=== PATIENT | female | born 1990 | race African-American/Black ===

== ENCOUNTER 2023-01-13 05:16 | Observation (INO) | payer OTHER ==
[2023-01-13] MEDS ORDERED: KETOROLAC 15 MG/ML VIAL IVP STA (05:42)
[2023-01-13] MEDS ORDERED: ONDANSETRON 4 MG/2 ML VIAL IVP STA (05:42)
[2023-01-13] MEDS ORDERED: SODIUM CHLORIDE 0.9% 1,000 ML IV STA ×2 (05:42→07:15)
--- NOTE | 2023-01-13 05:45 | ED Physician Documentation ---
History of Present Illness - Stated complaint Stated Complaint: ABD PX - Chief complaint Chief Complaint: Abd Pain - History obtained from History obtained from: Patient, Family () - Additonal information Additional information: 32yF, previously healthy, p/w nbnb n/v X 2 days and epigastric abdominal pain radiating diffusely. +chills. +dysuria yesterday. + low back pain. denies diarrhea. no PSH PD PAST MEDICAL HISTORY - Past Medical History Past Medical History: No - Past Surgical History Past Surgical History: No - Present Medications Home Medications: Ambulatory Orders Medication Instructions Recorded Confirmed Ondansetron Odt [Zofran Odt] 4 mg TL Q6H PRN #10 tablet 01/13/23 - Allergies Allergies/Adverse Reactions: Allergies Allergy/AdvReac Type Severity Reaction Status Date / Time No Known Drug Allergies Allergy Verified 01/13/23 05:51 - Social History Does the pt smoke?: No Smoking Status: Never smoker Does the pt drink ETOH?: No Does the pt have substance abuse?: No - Immunizations Immunizations are current?: Yes - POLST Patient has POLST: No PD ED PE NORMAL - Vitals Vital signs reviewed: Yes - General General: Alert and oriented X 3, No acute distress, Well developed/nourished - HEENT HEENT: Atraumatic, PERRL, EOMI, Other (dry mm) - Neck Neck: Supple, no meningeal sign - Cardiac Cardiac: RRR - Respiratory Respiratory: No respiratory distress, Clear bilaterally - Abdomen Abdomen: Non tender, Non distended, Other (discomfort to suprapubic palpation) - Back Back: No CVA TTP - Derm Derm: Normal color, Warm and dry - Neuro Neuro: Alert and oriented X 3 - Psych Psych: Normal mood, Normal affect Results - Vitals Vitals: Vital Signs - 24 hr 01/13/23 05:20 Temperature 37.0 C Heart Rate 86 Respiratory 18 Rate Blood Pressure 115/73 O2 Saturation 99 Oxygen O2 Source Room air - Labs Labs: Laboratory Tests 01/13/23 01/13/23 05:40 06:03 WBC 14.9 H RBC 4.84 Hgb 14.2 Hct 42.2 MCV 87.2 MCH 29.3 MCHC 33.6 RDW 13.4 Plt Count 191 MPV 11.5 H Neut # (Auto) 10.6 H Lymph # (Auto) 3.0 [place] # (Auto) 1.1 H Eos # (Auto) 0.1 Baso # (Auto) 0.1 Absolute Nucleated RBC 0.00 Nucleated RBC % 0.0 Sodium 136 Potassium 3.7 Chloride 102 Carbon Dioxide 25 Anion Gap 9.0 BUN 13 Creatinine 0.6 Estimated GFR (MDRD) 117 Glucose 108 H Calcium 9.8 Total Bilirubin 0.4 AST 14 ALT 15 Alkaline Phosphatase 45 Total Protein 7.6 Albumin 4.3 Globulin 3.3 Albumin/Globulin Ratio 1.3 Lipase 33 PD Medical Decision Making - ED course ED course: 32-year-old woman presented to the ED with nausea and vomiting and dysuria yesterday. CBC, abdominal panel benign with the exception of some leukocytosis. Suspect urinary tract infection versus viral gastroenteritis. Patient signed out to incoming daytime EDMD at 7 AM shift change pending urinalysis. Zofran sent electronically to pharmacy. Departure - Departure Clinical Impression: Vomiting, Abdominal pain, Dysuria Condition: Stable Instructions: ED Nausea Vomiting Prescriptions: Ondansetron Odt [Zofran Odt] 4 mg TL Q6H PRN #10 tablet PRN Reason: Nausea / Vomiting Comments: You were seen in the emergency department for vomiting and abdominal pain. Prescription for zofran was sent electronically to [facility] in [place]. Please follow-up with your primary care provider and return to the emergency department if you have any new or worsening symptoms or other concerns. Forms: PCP List
[2023-01-13 05:49] LABS: BASOPHILS # (AUTO) 0.1 10^3/uL (0.0-0.1); BASOPHILS % (AUTO) 0.3 %; EOSINOPHILS # (AUTO) 0.1 10^3/uL (0.0-0.7); EOSINOPHILS % (AUTO) 0.9 %; HCT - HEMATOCRIT 42.2 % (37.0-47.0); HGB - HEMOGLOBIN 14.2 g/dL (12.0-16.0); LYMPHOCYTES % (AUTO) 20.2 %; MEAN CORPUSCULAR HEMOGLOBIN 29.3 pg (27.0-31.0); MEAN CORPUSCULAR HGB CONC 33.6 g/dL (32.0-36.0); MEAN CORPUSCULAR VOLUME 87.2 fL (81.0-99.0); MEAN PLATELET VOLUME 11.5 fL (7.9-10.8); MONOCYTES # (AUTO) 1.1 10^3/uL (0.0-1.0); MONOCYTES % (AUTO) 7.3 %; NEUTROPHILS # (AUTO) 10.6 10^3/uL (1.5-6.6); NEUTROPHILS % (AUTO) 70.9 %; PLT - PLATELET COUNT 191 10^3/uL (130-450); RED BLOOD COUNT 4.84 10^6/uL (4.20-5.40); RED CELL DISTRIBUTION WIDTH 13.4 % (12.0-15.0); WHITE BLOOD COUNT 14.9 x10^3/uL (4.8-10.8)
[2023-01-13 06:23] LABS: ALBUMIN 4.3 g/dL (3.2-5.5); ALBUMIN/GLOBULIN RATIO 1.3 (1.0-2.2); BILIRUBIN,TOTAL 0.4 mg/dL (0.2-1.0); CALCIUM 9.8 mg/dL (8.5-10.3); CREATININE 0.6 mg/dL (0.6-1.3); POTASSIUM 3.7 mmol/L (3.5-4.5); TOTAL PROTEIN 7.6 g/dL (6.4-8.9)
[2023-01-13 07:46] LABS: BILIRUBIN,URINE NEGATIVE (NEGATIVE); GLUCOSE, URINE (UA) NEGATIVE (NEGATIVE); KETONES,URINE (UA) NEGATIVE (NEGATIVE); LEUKOCYTE ESTERASE, URINE NEGATIVE (NEGATIVE); NITRITE,URINE NEGATIVE (NEGATIVE); OCCULT BLOOD,URINE NEGATIVE (NEGATIVE); PH,URINE 6.5 PH (5.0-7.5); PROTEIN,URINE 100 mg/dL (NEGATIVE); UROBILINOGEN,URINE 0.2 (NORMAL) E.U./dL (NORMAL)
[2023-01-13 07:48] LABS: CLARITY,URINE HAZY (CLEAR); HCG UR QUAL NEGATIVE
[2023-01-13 07:53] LABS: BACTERIA,URINE Rare /HPF (None Seen); MUCUS,URINE Few Strands; RBC,URINE None Seen /HPF (0-5); SQUAMOUS EPITHELIAL CELL,UR MOD Squamous (<= Few); WBC,URINE 0-3 /HPF (0-5)
[2023-01-13] MEDS ORDERED: MORPHINE 2 MG/ML CARPUJECT IVP STA (09:41)
[2023-01-13] MEDS ORDERED: DROPERIDOL 5 MG/2 ML VIAL IVP STA (09:41)
--- NOTE | 2023-01-13 10:41 | CT Report ---
PROCEDURE: ABDOMEN/PELVIS W INDICATIONS: RLQ and suprapubic abd pn/vom CONTRAST: 100ml Opti 320 TECHNIQUE: After the administration of intravenous contrast, 5 mm thick sections acquired from the diaphragms to the symphysis. 5 mm thick coronal and sagittal reformats were acquired. For radiation dose reducti on, the following was used: automated exposure control, adjustment of mA and/or kV according to jalen ent size. COMPARISON: None FINDINGS: Image quality: Excellent. Lung bases and heart: Unremarkable. Liver: No solid mass. Gallbladder and biliary tree: Spleen: No splenomegaly. Pancreas: No pancreatic ductal dilation. Adrenals: No adrenal nodule. Kidneys and ureters: No hydronephrosis. No renal cystic lesion which requires follow up. No solid mas s. Bowel and peritoneum: No bowel distension. There is a blind-ending tubular structure within the right hemipelvis, with a maximal short axis diameter of 15 mm with thickened christine. There is a small amoun t of free fluid in the pelvis. Lymph nodes: No central or retroperitoneal adenopathy. Vessels: No infrarenal aortic aneurysm. PELVIS Reproductive organs: Unremarkable. Bladder: No abnormal wall thickening, accounting for underdistension. Pelvic lymph nodes: No pelvic adenopathy by size criteria. Bones: No aggressive osseous abnormality. Other: No significant ventral or inguinal hernia. IMPRESSION: 1. Acute appendicitis. 2. Small amount of free fluid in the pelvis. Reviewed by: Marielos Hanna MD on 01/13/2023 10:40 AM PDT Approved by: Marielos Hanna MD on 01/13/2023 10:40 AM PDT Station ID: [id number]
[2023-01-13] MEDS ORDERED: IOVERSOL 320 100 ML VIAL IVP ONE (11:08)
[2023-01-13] MEDS ORDERED: cefTRIAXone 1 GM in SODIUM CHLORIDE 0.9% MINIBAG 100 ML IV STA (11:29)
[2023-01-13] MEDS ORDERED: metroNIDAZOLE 500 MG/100 ML 500 MG/100 ML BAG IV ONE (11:30)
[2023-01-13] MEDS ORDERED: SODIUM CHLORIDE FLUSH 0.9% 10 ML SYRINGE IVP PRN (11:55)
[2023-01-13] MEDS ORDERED: LACTATED RINGERS 1,000 ML IV SCH ×2 (12:00→13:00)
--- NOTE | 2023-01-13 12:01 | HISTORY & PHYSICAL EXAMINATION ---
Chief Complaint - Chief Complaint Chief Complaint: Abdominal pain History of Present Illness - Admitted From Admitted From:: ED - History Obtained From Records Reviewed: Yes History obtained from: Patient Exam Limitations: None - History of Present Illness HPI Comment/Other: Malini was well until yesterday afternoon when she developed brenda-umbilical pain that was constant, non-radiating, not improved with BM or emesis and persistent. The pain moved to her RLQ over the evening. She has had chills but no fever. She has been nauseated and vomited several times. She denies prior episodes of similar discomfort. History - Past Medical History Cardiovascular: reports: None Respiratory: reports: None Neuro: reports: None Endocrine/Autoimmune: reports: None GI: reports: None DIETETICS PROFESSOR: reports: None : reports: None HEENT: reports: None Psych: reports: None Musculoskeletal: reports: None Derm: reports: None MRSA Hx?: No - Family & Social History Living arrangement: At home Living Situation: With spouse/s.o. - Substance History Use: Uses substance without health or social issues: NONE - POLST Patient has POLST: No Meds/Allgy - Home Medications Home Medications: Ambulatory Orders Medication Instructions Recorded Confirmed Ondansetron Odt [Zofran Odt] 4 mg TL Q6H PRN #10 tablet 01/13/23 - Allergies Allergies/Adverse Reactions: Allergies Allergy/AdvReac Type Severity Reaction Status Date / Time No Known Drug Allergies Allergy Verified 01/13/23 05:51 Review of Systems - Constitutional Constitutional: reports: Chills, Malaise - Gastrointestinal Gastrointestinal: reports: Abdominal pain, Nausea, Vomiting Exam - Vital Signs Vital Signs: Vital Signs x48h Temp Pulse Resp BP Pulse Ox 01/13/23 11:41 99.0 F 110 H 18 113/74 99 01/13/23 10:52 105 H 18 113/65 99 01/13/23 09:00 98.1 F 94 18 128/85 H 100 01/13/23 07:41 70 18 115/71 99 01/13/23 05:20 98.6 F 86 18 115/73 99 - Physical Exam General Appearance: positive: No acute distress Eyes Bilateral: positive: Normal inspection, PERRL ENT: positive: ENT inspection nml, Pharynx nml, No signs of dehydration Neck: positive: Nml inspection, Thyroid nml, No JVD Respiratory: positive: Chest non-tender, No respiratory distress, Breath sounds nml Cardiovascular: positive: Regular rate & rhythm, No murmur Peripheral Pulses: positive: 2+ Abdomen: positive: No distention, Tenderness, Other (RLQ tenderness without peritoneal signs; few BS) Back: positive: Nml inspection Skin: positive: Color nml, No rash, Warm Extremities: positive: Non-tender Neurologic/Psychiatric: positive: Oriented x3 Conclusion/Plan - Lab Results Fish Bones: 01/13/23 05:40 01/13/23 06:03 - Other Other Results/Comments: Image: CT ABd/Pelvis - Dilated appendix without evidence of perforation (images reviewed by me) Assessment: 1) Acute appendicitis Plan: 1) Laparoscopic appendectomy, possible open appendectomy under GETA 2) Preop Ceftriaxone/Flagyl Consent: Malini has been counseled for the procedure, it's indications, risks, benefits and expected outcome as well as alternative therapies. We specifically discussed risks associated with anesthesia, bleeding, infection, injury to surrounding structures which may require additional surgery, and the possible need for conversion to an open procedure. We also discussed the possible need for a blood transfusion with its risks and benefits. Malini understands, agrees, and consents to the proposed operative strategy and requests that we proceed with the procedure as outlined in our discussion. Vadim Hopkins MD, [facility] General Surgery Service
--- NOTE | 2023-01-13 12:11 | ED Physician Documentation ---
ED Addendum - Addendum Addendum: 01/13/23 12:00 The patient was signed out to me at change of shift, pending urinalysis and reevaluation after symptomatic treatment for abdominal pain, nausea and vomiting. does ever anybody from the the patient had been found to have a white blood cell count of 14.9 but remainder of work-up was negative. The patient was reported by nursing staff to be asking for more nausea medicine and for something for pain. I did go back and reevaluate her and examined her abdomen and found that she was actually quite tender on the right side. As such, I did order her the symptomatic relief requested but also, ordered a CT scan of the abdomen and pelvis. This was found to be positive for appendicitis. I spoke with the surgeon Dr. Hopkins who did come and see the patient. I also explained the findings and plan to the patient prior to Dr. Hopkins's arrival and she and her partner expressed understanding. Final impression: Acute appendicitis Disposition: Admit to same-day surgery in serious condition.
--- NOTE | 2023-01-13 12:19 | ANESTHESIA ---
Pre-Anesthesia VS, & Labs - Diagnosis appendicitis - Procedure lap appy Vital Signs: Temp Pulse Resp BP Pulse Ox O2 Flow Rate 37.2 C 110 H 18 113/74 99 01/13/23 11:41 01/13/23 11:41 01/13/23 11:41 01/13/23 11:41 01/13/23 11:41 Height: 4 ft 9 in Weight (kg): 54.431 kg Body Mass Index: 25.9 BMI Classification: Overweight - NPO >8 hours - Is Patient ?: No - Lab Results Current Lab Results: Laboratory Tests 01/13/23 06:03: Sodium 136, Potassium 3.7, Chloride 102, Carbon Dioxide 25, Anion Gap 9.0, BUN 13, Creatinine 0.6, Estimated GFR (MDRD) 117, Glucose 108 H, Calcium 9.8, Total Bilirubin 0.4, AST 14, ALT 15, Alkaline Phosphatase 45, Total Protein 7.6, Albumin 4.3, Globulin 3.3, Albumin/Globulin Ratio 1.3, Lipase 33 01/13/23 05:40: WBC 14.9 H, RBC 4.84, Hgb 14.2, Hct 42.2, MCV 87.2, MCH 29.3, MCHC 33.6, RDW 13.4, Plt Count 191, MPV 11.5 H, Neut # (Auto) 10.6 H, Lymph # (Auto) 3.0, [place] # (Auto) 1.1 H, Eos # (Auto) 0.1, Baso # (Auto) 0.1, Absolute Nucleated RBC 0.00, Nucleated RBC % 0.0 Lab results reviewed: Yes Fish Bones: 01/13/23 05:40 01/13/23 06:03 Home Medications and Allergies Active Medications Heparin Sodium (Porcine) (Heparin 5,000 Unit/Ml Vial) 5,000 unit SUBQ TID LONNY Metronidazole (Flagyl 500 Mg/100 Ml) 500 mg in 100 mls @ 100 mls/hr IV ONCE ONE Stop: 01/13/23 12:29 Last Admin: 01/13/23 11:34 Dose: 100 mls/hr Lactated Ringer's (Lr) 1,000 mls @ 100 mls/hr IV .Q10H LONNY Sodium Chloride (Sodium Chloride Flush 0.9% 10 Ml Syringe) 10 ml IVP 0100,0900,1700 LONNY Sodium Chloride (Sodium Chloride Flush 0.9% 10 Ml Syringe) 10 ml IVP PRN PRN PRN Reason: NEEDED PER PROVIDER ORDERS Allergies/Adverse Reactions: Allergies Allergy/AdvReac Type Severity Reaction Status Date / Time No Known Drug Allergies Allergy Verified 01/13/23 05:51 Anes History & Medical History - Anesthetic History Anesthesia Complications: reports: No previous complications Family history of Anesthesia Complications: Denies Family history of Malignant Hyperthermia: Denies - Medical History Cardiovascular: reports: None Pulmonary: reports: None Gastrointestinal: reports: None Urinary: reports: None Neuro: reports: None Musculoskeletal: reports: None Endocrine/Autoimmune: reports: None Skin: reports: None Smoking Status: Never smoker Exam General: Alert, Oriented x3, Cooperative Dental: WNL Mouth Openin Fingerbreadth Neck Mobility: Normal Mallampati classification: II Thyromental Distance: 4-6 cm Respiratory: Lungs clear Cardiovascular: Regular rate Plan Anesthesia Type: General Consent for Procedure(s) Verified and Reviewed: Yes Code Status: Attempt Resuscitation ASA classification: 1-Healthy patient Is this case an emergency?: Yes
[2023-01-13] MEDS ORDERED: ePHEDrine 50 MG/ML VIAL IVP PRN (12:25)
[2023-01-13] MEDS ORDERED: ONDANSETRON 4 MG/2 ML VIAL IVP PRN ×2 (12:25→13:58)
[2023-01-13] MEDS ORDERED: NALOXONE 0.4 MG/ML VIAL IVP PRN (12:25)
[2023-01-13] MEDS ORDERED: HYDROmorphone 0.5 MG/0.5 ML SYRINGE IVP PRN (12:25)
[2023-01-13] MEDS ORDERED: ATROPINE ABBOJECT 1 MG/10 ML SYRINGE IVP PRN (12:25)
[2023-01-13] MEDS ORDERED: fentaNYL 100 MCG/2 ML VIAL IVP PRN (12:25)
[2023-01-13] MEDS ORDERED: fentaNYL 100 MCG/2 ML VIAL ONE (12:27)
[2023-01-13] MEDS ORDERED: LIDOCAINE 1%-EPI 1:100000 20 ML MDV ONE (13:00)
[2023-01-13] MEDS ORDERED: BUPIVACAINE 0.25% PF 30 ML VIAL ONE (13:00)
[2023-01-13] MEDS ORDERED: ACETAMINOPHEN 1,000 MG/100 ML 1,000 MG/100 ML BAG IV ONE (13:03)
[2023-01-13] MEDS ORDERED: LIDOCAINE 1%-EPI 1:100000 20 ML MDV SUBQ ONE ×2 (13:23)
[2023-01-13] MEDS ORDERED: BUPIVACAINE 0.25% PF 30 ML VIAL SUBQ ONE ×2 (13:24)
[2023-01-13] MEDS ORDERED: SUGAMMADEX 200 MG/2 ML VIAL IVP ONE (13:32)
[2023-01-13] MEDS ORDERED: LACTATED RINGERS 1,000 ML IV ONE ×2 (13:46→14:00)
--- NOTE | 2023-01-13 13:57 | OPERATIVE REPORT ---
Operative Report - Other Other Information/Narrative: PROCEDURE DATE: 01/13/23 PREOPERATIVE DIAGNOSIS: Malini is a 32 year old female who has clinical, CT, and laboratory findings consistent with acute appendicitis. Malini is being taken to the operating room for laparoscopic appendectomy, possible open appendectomy. POSTOPERATIVE DIAGNOSIS: Acute appendicitis NAME OF PROCEDURE: Laparoscopic appendectomy SURGEON: Kali Hopkins MD, FACS STOCK SHIPPER: Fourth Mate ANESTHESIA: General endotracheal. ESTIMATED BLOOD LOSS: 5 mL. DRAINS: None SPECIMEN: Appendix COMPLICATIONS None FINDINGS: Dilated, non-ruptured, elongated appendix. Normal adnexa, uterus, liver, spleen DESCRIPTION OF OPERATION: After consent for the procedure was obtained, the patient was brought to the operating room where in the supine position, general endotracheal anesthesia was administered. A surgical time-out was performed, indicating the patient and the procedure to be performed. The abdomen was prepped with chloroprep and draped in a sterile fashion. The subcutaneous tissue of each of the planned port sites was infiltrated with 1% Lidocaine with epinephrine in a 50/50 mix with 1/4 % Marcaine mixture. Pneumoperitoneum was achieved through a subumbilical incision using a Donn cannula and an open technique. Under direct vision, a 5 mm muscle splitting, non-cutting port was placed in the right lower quadrant and an 12 mm muscle splitting, non-cutting port was placed in the left lower quadrant. Inspection revealed the above noted findings. Placing the patient in Trendelenburg position slightly rolled to the left allowed mobilization of the appendix into view. The appendix was then gently grasped with a ratcheted grasper and retracted superiorly and anteriorly. The mesoappendix was transected with a harmonic scalpel and healthy tissue was located at the base of the appendix. The base of the appendix was stapled and transected flush with the cecum using an Endo-TRISHA stapling device using gastrointestinal karthikeyan. The appendix was then brought out through the left lower quadrant port site incision using an EndoCatch device. Reinspection of the right lower quadrant revealed no evidence of bleeding or leakage from the previous dissection site. The right lower quadrant was irrigated with warm sterile saline. The irrigant was aspirated. A search was made for sponges, packs, instruments, and needles. None were found. The sponge, pack, instrument, and needle counts were relayed to me as being correct. The left lower quadrant port site was closed with a 2-0 Vicryl under direct vision using an endo-close device. The pneumoperitoneum then was released. There was no evidence of bleeding from the laparoscopic port sleeve sites upon release of the pneumoperitoneum. The subumbilical incision was closed with 2-0 Vicryl for the linea alba. The skin of each of the port sites was closed with interrupted 4-0 Monocryl in a subcuticular fashion with Steri-Strips to reinforce the epidermis. Dressings were placed. The patient tolerated the procedure well and was brought to the re covery room with stable vital signs.
[2023-01-13] MEDS ORDERED: oxyCODONE 5 MG TABLET PO PRN (13:58)
[2023-01-13] MEDS ORDERED: LORazepam 2 MG/ML VIAL IVP PRN (13:58)
[2023-01-13] MEDS: HEPARIN 5,000 UNIT/ML VIAL SUBQ SCH ×2 (15:22→21:37)
--- NOTE | 2023-01-13 15:59 | ANESTHESIA POST OP EVALUATION ---
Anesthesia Post Eval - Post Anesthesia Eval Vitals: Last Vital Signs Temp 37.6 C 01/13/23 15:25 Pulse 88 01/13/23 15:25 Resp 16 01/13/23 15:25 BP 95/61 01/13/23 15:25 Pulse Ox 96 01/13/23 15:25 O2 Flow Rate CV Function Including HR & BP: Stable Pain Control: Satisfactory Nausea & Vomiting: Negative Mental Status: Baseline Respiratory Status: Airway Patent Hydration Status: Satisfactory Anesthesia Complications: None
[2023-01-13] MEDS: SODIUM CHLORIDE FLUSH 0.9% 10 ML SYRINGE IVP SCH ×2 (16:50→23:56)
[2023-01-13] MEDS: LACTATED RINGERS 1,000 ML IV SCH (16:50)
[2023-01-13] MEDS: ACETAMINOPHEN 325 MG TABLET PO SCH ×2 (17:07→21:37)
[2023-01-13] MEDS: KETOROLAC 15 MG/ML VIAL IVP SCH (17:34)
[2023-01-14] MEDS: ACETAMINOPHEN 325 MG TABLET PO SCH ×4 (01:18→12:57)
[2023-01-14] MEDS: HEPARIN 5,000 UNIT/ML VIAL SUBQ SCH ×2 (05:27→14:44)
[2023-01-14] MEDS: KETOROLAC 15 MG/ML VIAL IVP SCH ×3 (05:31→12:57)
[2023-01-14 05:32] LABS: BASOPHILS % (AUTO) 0.1 %; HCT - HEMATOCRIT 35.5 % (37.0-47.0); HGB - HEMOGLOBIN 11.9 g/dL (12.0-16.0); LYMPHOCYTES # (AUTO) 2.2 10^3/uL (1.5-3.5); MEAN CORPUSCULAR HEMOGLOBIN 29.7 pg (27.0-31.0); MEAN CORPUSCULAR HGB CONC 33.5 g/dL (32.0-36.0); MEAN CORPUSCULAR VOLUME 88.5 fL (81.0-99.0); MEAN PLATELET VOLUME 11.6 fL (7.9-10.8); MONOCYTES # (AUTO) 1.1 10^3/uL (0.0-1.0); MONOCYTES % (AUTO) 6.5 %; NEUTROPHILS # (AUTO) 13.5 10^3/uL (1.5-6.6); PLT - PLATELET COUNT 185 10^3/uL (130-450); RED BLOOD COUNT 4.01 10^6/uL (4.20-5.40); WHITE BLOOD COUNT 16.8 x10^3/uL (4.8-10.8)
[2023-01-14 05:45] LABS: CALCIUM 8.5 mg/dL (8.5-10.3); CREATININE 0.5 mg/dL (0.6-1.3); POTASSIUM 3.5 mmol/L (3.5-4.5)
[2023-01-14] MEDS: LACTATED RINGERS 1,000 ML IV SCH (05:53)
--- NOTE | 2023-01-14 07:59 | PROVIDER PROGRESS NOTE ---
Subjective - General Admit Date: 01/13/23 Procedure Date: 01/13/23 Post Op Days: 1 Procedure Performed: Laparoscopic appendectomy - Review of Systems Wound/Incisions: positive: Other (Port site discomfort under good control) Drain Type: N/A HEENT: positive: No symptoms Pulmonary: positive: No symptoms Cardiovascular: positive: No symptoms Gastrointestinal: positive: Other (Tolerating a general diet) Genitourinary: positive: No symptoms, Other (Passing urine) Musculoskeletal: positive: No symptoms, Other (Ambulatory) Objective - Patient Data Vital Signs: Vital Signs x48h Temp Pulse Resp BP BP Pulse Ox 01/14/23 06:51 97.9 F 65 16 88/53 L 97 01/14/23 00:10 68 84/55 L 01/14/23 00:09 68 84/56 L 01/14/23 00:00 97.7 F 68 20 90/50 L 94/54 L 98 Weight: Weight 01/12/23 01/13/23 01/14/23 23:59 23:59 23:59 Weight (kg) 54 kg Intake & Output: Intake and Output Totals x24h 01/12/23 01/13/23 01/14/23 23:59 23:59 23:59 Intake Total 2681.667 750.833 Balance 2681.667 750.833 - Lab Results Lab Results: 01/14/23 05:26 01/14/23 05:26 Other Lab Results: Lab Results x24hrs 01/14/23 01/14/23 01/14/23 Range/Units 07:46 05:26 05:26 WBC 16.8 H (4.8-10.8) x10^3/uL RBC 4.01 L (4.20-5.40) 10^6/uL Hgb 11.9 L (12.0-16.0) g/dL Hct 35.5 L (37.0-47.0) % MCV 88.5 (81.0-99.0) fL MCH 29.7 (27.0-31.0) pg MCHC 33.5 (32.0-36.0) g/dL RDW 13.0 (12.0-15.0) % Plt Count 185 (130-450) 10^3/uL MPV 11.6 H (7.9-10.8) fL Neut # (Auto) 13.5 H (1.5-6.6) 10^3/uL Lymph # (Auto) 2.2 (1.5-3.5) 10^3/uL [place] # (Auto) 1.1 H (0.0-1.0) 10^3/uL Eos # (Auto) 0.0 (0.0-0.7) 10^3/uL Baso # (Auto) 0.0 (0.0-0.1) 10^3/uL Absolute Nucleated RBC 0.00 x10^3/uL Nucleated RBC % 0.0 /100WBC Sodium 136 (135-145) mmol/L Potassium 3.5 (3.5-4.5) mmol/L Chloride 104 (101-111) mmol/L Carbon Dioxide 24 (21-32) mmol/L Anion Gap 8.0 (6-13) BUN 15 (6-20) mg/dL Creatinine 0.5 L (0.6-1.3) mg/dL Estimated GFR (MDRD) 174 (>89) Glucose 118 H (74-104) mg/dL POC Whole Bld Glucose 110 H (70 - 100) mg/dL Calcium 8.5 (8.5-10.3) mg/dL Urine RBC (0-5) /HPF Urine WBC (0-5) /HPF Ur Squamous Epith Cells (<= Few) Urine Bacteria (None Seen) /HPF Urine Mucus Urine Culture Comments 01/13/23 01/13/23 Range/Units 17:07 07:39 WBC (4.8-10.8) x10^3/uL RBC (4.20-5.40) 10^6/uL Hgb (12.0-16.0) g/dL Hct (37.0-47.0) % MCV (81.0-99.0) fL MCH (27.0-31.0) pg MCHC (32.0-36.0) g/dL RDW (12.0-15.0) % Plt Count (130-450) 10^3/uL MPV (7.9-10.8) fL Neut # (Auto) (1.5-6.6) 10^3/uL Lymph # (Auto) (1.5-3.5) 10^3/uL [place] # (Auto) (0.0-1.0) 10^3/uL Eos # (Auto) (0.0-0.7) 10^3/uL Baso # (Auto) (0.0-0.1) 10^3/uL Absolute Nucleated RBC x10^3/uL Nucleated RBC % /100WBC Sodium (135-145) mmol/L Potassium (3.5-4.5) mmol/L Chloride (101-111) mmol/L Carbon Dioxide (21-32) mmol/L Anion Gap (6-13) BUN (6-20) mg/dL Creatinine (0.6-1.3) mg/dL Estimated GFR (MDRD) (>89) Glucose (74-104) mg/dL POC Whole Bld Glucose 147 H (70 - 100) mg/dL Calcium (8.5-10.3) mg/dL Urine RBC None Seen (0-5) /HPF Urine WBC 0-3 (0-5) /HPF Ur Squamous Epith Cells MOD Squamous H (<= Few) Urine Bacteria Rare (None Seen) /HPF Urine Mucus Few Strands Urine Culture Comments NOT INDICATED - Current Medications Current Medications: Current Medications Generic Name Dose Route Start Last Admin Trade Name Freq PRN Reason Stop Dose Admin Acetaminophen 650 mg 01/13/23 17:00 01/14/23 05:23 Acetaminophen 325 Mg Tablet PO 650 mg Q4HR LONNY Administration Heparin Sodium (Porcine) 5,000 unit 01/13/23 14:00 01/14/23 05:27 Heparin 5,000 Unit/Ml Vial SUBQ 5,000 unit TID LONNY Administration Lactated Ringer's 1,000 mls @ 50 mls/hr 01/13/23 14:00 01/14/23 05:53 Lr IV 50 mls/hr .Q20H LONNY Administration Ketorolac Tromethamine 30 mg 01/13/23 18:00 01/14/23 05:31 Ketorolac 15 Mg/Ml Vial IVP 01/14/23 18:01 30 mg Q6HR LONNY Administration Sodium Chloride 10 ml 01/13/23 17:00 01/13/23 23:56 Sodium Chloride Flush 0.9% 10 Ml Syringe IVP 10 ml 0100,0900,1700 LONNY Administration - Physical Exam General Appearance: positive: No acute distress, Alert Eyes Bilateral: positive: Normal inspection ENT: positive: ENT inspection nml Neck: positive: Nml inspection Respiratory: positive: Chest non-tender, No respiratory distress, Breath sounds nml Cardiovascular: positive: Regular rate & rhythm Abdomen: positive: Non-tender, Nml bowel sounds, No distention, Other (Port site dressings clean and dry) Skin: positive: Color nml Extremities: positive: Full ROM Neurologic/Psychiatric: positive: Oriented x3 Impression/Plan - Problem List Problem List: Assessment: 1) Acute appendicitis, s/p laparoscopic appendectomy - progressing well 2) Mild orthostatic hypotension - aymptomatic Plan: 1) Increase IV fluid rate this morning 2) Encourage plenty of fluids with her general diet 3) Ambulate 4) Re-evaluate after lunch. If she continues to improve, I will discharge her at that time. Vadim Hopkins MD [phone]
[2023-01-14] MEDS ORDERED: LACTATED RINGERS 1,000 ML IV SCH (08:07)
[2023-01-14] MEDS: SODIUM CHLORIDE FLUSH 0.9% 10 ML SYRINGE IVP SCH (09:11)
[2023-01-14 09:32] VITALS: O2SAT 98
[2023-01-14 12:57] VITALS: BP 105/63
--- NOTE | 2023-01-14 12:57 | PROVIDER PROGRESS NOTE ---
Progress Note General Surgery Progress Note S: Eating solid food; ambulatory; passing flatus; Port site discomfort controlled with Tylenol and NSAID; O: VSS, BP normal with supine, sitting, standing positions. Abdomen is soft and port site dressings are dry. A: Ready for discharge P: Discharge to home; Off work until seen in the clinic next week; Diet as tolerated; Activity as tolerated; May shower tomorrow; Tylenol/Advil for discomfort; FU Surgery Clinic in 7 days Vadim Hopkins MD [phone]
--- NOTE | 2023-01-14 13:00 | DISCHARGE SUMMARY ---
"Discharge Summary Admit Date: 01/13/23 Discharge Date: 01/14/23 Discharging Provider: Dr. Hopkins Code Status: Attempt Resuscitation Condition at Discharge: Good Discharge Disposition: 01 Home, Self Care - DIAGNOSES Admission Diagnoses: Acute appendicitis Discharge Diagnoses with Status of Each Condition: Acute appendicitis - resolved with laparoscopic appendectomy - HPI History of Present Illness: Malini was well until yesterday afternoon when she developed brenda-umbilical pain that was constant, non-radiating, not improved with BM or emesis and persistent. The pain moved to her RLQ over the evening. She has had chills but no fever. She has been nauseated and vomited several times. She denies prior episodes of similar discomfort. - CONSULTS | PROCEDURES Procedures: 01/13/23 - Laparoscopic appendectomy - ALLERGIES Allergies/Adverse Reactions: Allergies Allergy/AdvReac Type Severity Reaction Status Date / Time No Known Drug Allergies Allergy Verified 01/13/23 05:51 - MEDICATIONS Home Medications: Ambulatory Orders Medication Instructions Recorded Confirmed Ondansetron Odt [Zofran Odt] 4 mg TL Q6H PRN #10 tablet 01/13/23 - PHYSICAL EXAM AT DISCHARGE General Appearance: positive: No acute distress, Alert Eyes Bilateral: positive: Normal inspection, PERRL ENT: positive: ENT inspection nml, Pharynx nml Neck: positive: Nml inspection, Thyroid nml Respiratory: positive: Chest non-tender, No respiratory distress, Breath sounds nml Cardiovascular: positive: Regular rate & rhythm Peripheral Pulses: positive: 2+ Abdomen: positive: Nml bowel sounds, No distention, Other (Port site wounds healing without bleeding or infection) Back: positive: Nml inspection Skin: positive: Color nml, Warm Extremities: positive: Full ROM - LABS Result Diagrams: 01/14/23 05:26 01/14/23 05:26 - DIAGNOSTIC IMAGING Diagnostic Imaging Results: Prelim report reviewed, Final report reviewed - QUALITY (Female Hip Fx Only) Was patient sent home on osteoporosis medication?: No - FOLLOW UP Follow Up: To be seen in the General Surgery Clinic in 7 days - TIME SPENT Time Spent in Discharge (Minutes): 30"
--- NOTE | 2023-01-14 13:06 | Discharge Plan ---
Discharge Plan Problem Reviewed?: Yes Disposition: Home, Self Care Condition: Good Prescriptions: Ibuprofen [Motrin] 600 mg PO TID #30 tab Acetaminophen [Tylenol] 650 mg PO QID 4 Days #20 tab Diet: Regular Activity Restrictions: Activity as Tolerated Shower Restrictions: No (Start 01/15/23; Remove brown band aids) Driving Restrictions: No Weight Bearing: Full Weight Instruction Topics: Appendectomy Laparoscopic Dc, ED Nausea Vomiting Plan of Treatment: Recuperate this week; Off work until seen in office; FU next Tuesday in [facility] Additional Instructions or Follow Up instructions: You were seen in the emergency department for vomiting and abdominal pain. Prescription for zofran was sent electronically to [facility] [place]. Please follow-up with your primary care provider and return to the emergency department if you have any new or worsening symptoms or other concerns. No Smoking: If you smoke, Please STOP! Call for help.
== END 2023-01-14 16:00 | disposition home or self-care (01) ==
LOC: ED 05:16 → SDS 11:45 → MS2 11:55
PROVIDERS: ADMIT Surgery; ATTEND Surgery
PROC: 0DTJ4ZZ Resection of Appendix, Percutaneous Endoscopic Approach (ICD-10-PCS; principal; 2023-01-13 12:15)
DX: K35.80 Unspecified acute appendicitis (principal); I95.1 Orthostatic hypotension; D72.829 Elevated white blood cell count, unspecified; Z32.02 Encounter for pregnancy test, result negative
CPT/HCPCS: 36415; 44970; 74177; 80048; 80053; 81001; 81025; 83690; 85025; 96374; 96375; 99285; A9270; J0131; J7120; Q9967; 81003; 87086